=== PATIENT | male | born 1965 ===

== ENCOUNTER 2022-12-12 06:15 | Day surgery (SDC) | payer OTHER | END 2022-12-12 11:45 | disposition home or self-care (01) | LOC: AMB-ENDOS 06:15 | PROVIDERS: ATTEND Surgery | DX: K63.5 Polyp of colon (principal); K57.30 Diverticulosis of large intestine without perforation or abscess without bleeding; K92.1 Melena; Z20.822 Contact with and (suspected) exposure to COVID-19 ==